=== PATIENT | female | born 1975 | race Caucasian/White ===

== ENCOUNTER 2016-06-23 13:14 | Emergency (ER) | payer SELFPAY ==
[2016-06-23] MEDS ORDERED: ONDANSETRON INJ 4 MG/2 ML VIAL ONE (13:26)
[2016-06-23] MEDS ORDERED: LIDOCAINE VIS-MYLANTA 30 ML UD PO ONE (13:26)
[2016-06-23] MEDS ORDERED: ONDANSETRON INJ 4 MG/2 ML VIAL IV ONE (13:26)
--- NOTE | 2016-06-23 13:57 | RAD ---
EXAM DESCRIPTION: Abdomen Series CLINICAL HISTORY: 41 years Female, chest pain COMPARISON: None. FINDINGS: Two views of the abdomen demonstrate clear lung bases with no evidence of free abdominal air on the upright view. Bowel gas pattern is normal without obstruction or ileus or significant air-fluid levels. No soft tissue masses or unusual calculi are noted. Surgical clips from previous cholecystectomy in the right upper quadrant are noted. IMPRESSION: Normal abdomen two views. Electronically signed by: Jorge Carpenter MD 06/23/2016 1:56 PM CDT
[2016-06-23] MEDS ORDERED: MORPHINE SULFATE INJ 10 MG/ML VIAL IV ONE (15:12)
[2016-06-23] MEDS ORDERED: PROCHLORPERAZINE INJ 10 MG/2 ML VIAL IV ONE (15:12)
--- NOTE | 2016-06-23 15:20 | RAD ---
EXAM DESCRIPTION: Chest,1 View CLINICAL HISTORY: chest pain FINDINGS/ IMPRESSION: Normal cardiomediastinal silhouette. No edema, infiltrates or effusions Electronically signed by: Jorge Pollock MD 06/23/2016 3:20 PM CDT
[2016-06-23] MEDS ORDERED: NITROGLYCERIN 0.4 MG 25 EA TAB SL ONE (16:41)
[2016-06-23] MEDS ORDERED: ASPIRIN TABLET 325 MG TAB PO ONE (16:45)
[2016-06-23] MEDS ORDERED: ALUMINUM & MAGNESIUM HYDROXIDE 30 ML UD PO ONE (17:07)
[2016-06-23] MEDS ORDERED: PROMETHAZINE HCL 25 MG TAB PO ONE (17:27)
[2016-06-23] MEDS ORDERED: KETOROLAC TROMETHAMINE INJ 30 MG/ML VIAL IV ONE (17:31)
[2016-06-23] MEDS ORDERED: HYDROcodone 10MG/APAP 325MG 1 EA TAB PO ONE (17:31)
--- NOTE | 2016-06-23 17:50 | ED.PDOC ---
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 She has thrown up numerous times in that timeframe. She is having substernal chest pain and chest pain moved to the left side of her chest. No palpitations. No radiation to the shoulder or jaw. No diarrhea. No syncope or near syncope. She rates the pain with some associated shortness of breath fairly severely at a 7-8 out of 10. She does have a significant history of fibromyalgia, anxiety and rheumatoid arthritis. Her medications include hydrocodone and Lyrica. She also apparently has a history of recurrent nausea and she takes on average 4-5 Phenergan tablets per week. Source of the nausea isn't certain. She was hospitalized one year ago for intractable nausea and vomiting and had a CT scan and right upper quadrant ultrasound at that time. She has not had any Phenergan or hydrocodone for the last week according to her. She does have something of a history of reflux that to this point remains untreated. She does not appear to have any upper endoscopies in the recent past. Timing/Duration: 1/2 hour Severity: severe Improving Factors: nothing Worsening Factors: movement Associated Symptoms: chest pain, loss of appetite, malaise, nausea/vomiting <Chava Bermeo - Last Filed: 06/23/16 17:46> <Violeta Moreau - Last Filed: 06/23/16 20:21> - General Chief Complaint: GI Problem Stated Complaint: nausea and vomiting with chest pain Time Seen by Provider: 06/23/16 13:14 - History of Present Illness Allergies/Adverse Reactions: Allergies NO KNOWN ALLERGY Allergy (Verified 06/23/16 13:39) Home Medications: Ambulatory Orders ALPRAZolam [Xanax] 0.5 - 1 mg PO Q6HR PRN 05/19/15 Gabapentin 300 mg PO TID 05/19/15 HYDROcodone 10MG/APAP 325MG [[place] 10/325] 1 ea PO Q6H PRN 05/19/15 Promethazine Supp [Phenergan Suppository] 12.5 mg [place] Q6HR PRN #10 sup 06/16/15 Review of Systems - Review of Systems Constitutional: States: malaise EENTM: States: no symptoms reported Respiratory: States: short of breath - with the vomiting and chest pain Cardiology: States: chest pain Gastrointestinal/Abdominal: States: abdominal pain - epigastric, nausea, vomiting Genitourinary: States: no symptoms reported Musculoskeletal: States: no symptoms reported Skin: States: no symptoms reported Neurological: States: anxiety Endocrine: States: no symptoms reported All other Systems: No Change from Baseline <Chava Bermeo - Last Filed: 06/23/16 17:46> Past Medical History (General) - Patient Medical History Hx Seizures: No Hx Stroke: No Hx Dementia: No Hx Asthma: No Hx of COPD: No Hx Cardiac Disorders: No Hx Congestive Heart Failure: No Hx Pacemaker: No Hx Hypertension: No Hx Thyroid Disease: No Hx Diabetes: No Hx Gastroesophageal Reflux: No Hx Renal Disease: No Hx Cancer: No Hx of HIV: No Hx Hepatitis C: No Hx MRSA: No MRSA Source:: Wound Surgical History: appendectomy, cholecystectomy - Vaccination History Hx Tetanus, Diphtheria Vaccination: No Hx Influenza Vaccination: No Hx Pneumococcal Vaccination: No Immunizations Up to Date: No - Social History Hx Tobacco Use: No Hx Chewing Tobacco Use: No Hx Alcohol Use: No Hx Substance Use: No Hx Substance Use Treatment: No Hx Depression: No Feels Threatened In Home Enviroment: No Feels Threatened In a Relationship: No Hx Physical Abuse: No Hx Emotional Abuse: No Hx Suspected Abuse: No - Female History Patient is a Female of Child Bearing Age (10 -59 yrs old): Yes Patient : No <Chava Bermeo - Last Filed: 06/23/16 17:46> Family Medical History - Family History Mother Family History: No Known Living Status: Still Living Hx Family Hypertension: Yes <Chava Bermeo - Last Filed: 06/23/16 17:46> Physical Exam - Physical Exam General Appearance: Alert, Anxious Eye Exam: bilateral normal Ears, Nose, Throat: hearing grossly normal, normal ENT inspection, normal pharynx Neck: non-tender, full range of motion, supple Respiratory: lungs clear, normal breath sounds, no respiratory distress, no accessory muscle use, other - she does have discomfort palpation over her left lateral and anterior thorax. No rashes seen. Cardiovascular/Chest: normal peripheral pulses, regular rate, rhythm, no edema Peripheral Pulses: radial,right: 2+, radial,left: 2+, dorsalis pedis,right: 2+, dorsalis pedis,left: 2+, posterior tibialis,right: 2+, posterior tibialis,left: 2+ Gastrointestinal/Abdominal: non tender - with the exception of some epigastric discomfort, soft Rectal Exam: deferred Back Exam: normal inspection, no CVA tenderness, no vertebral tenderness Extremity: normal range of motion, non-tender, normal inspection, no pedal edema , normal capillary refill Neurologic: manager system II-XII nml as tested, alert, oriented x 3 - anxious Skin Exam: normal color Comments: Vital Signs - 24 hr 06/23/16 06/23/16 06/23/16 13:39 16:56 17:03 Temperature 98 F Pulse Rate [ 60 60 72 Right Radial] Respiratory 22 20 20 Rate Blood Pressure 122/64 114/70 107/69 [Left Arm] O2 Sat by Pulse 99 98 98 Oximetry Laboratory Results - last 24 hr 06/23/16 06/23/16 06/23/16 13:30 13:30 13:30 WBC 8.1 RBC 4.34 Hgb 13.9 Hct 41.3 MCV 95.1 MCH 32.0 H MCHC 33.7 RDW 13.1 Plt Count 273 MPV 7.7 Absolute Neuts (auto) 6.00 Absolute Lymphs (auto) 1.50 Absolute Monos (auto) 0.50 Absolute Eos (auto) 0.00 Absolute Basos (auto) 0.00 Neutrophils % 75.1 Lymphocytes % 18.8 L Monocytes % 5.9 Eosinophils % 0.1 L Basophils % 0.1 PT 11.7 INR 1.040 PTT (SP) 28.6 D-Dimer, Quantitative < 200 Sodium 137 Potassium 3.7 Chloride 104 Carbon Dioxide 25 Anion Gap 11.7 L BUN 11 Creatinine 0.73 BUN/Creatinine Ratio 15.1 Random Glucose 120 H Serum Osmolality 274.4 L Calcium 9.5 Magnesium 2.0 Total Bilirubin 0.5 AST 19 ALT 29 Alkaline Phosphatase 60 Creatine Kinase 46 CK-MB (CK-2) 0.7 CK-MB (CK-2) % Not Reportable Troponin I < 0.02 B-Natriuretic Peptide 14.7 Serum Total Protein 7.7 Albumin 4.4 Globulin 3.3 Albumin/Globulin Ratio 1.3 Amylase 29 Lipase 29 Urine Color Urine Appearance Urine pH Ur Specific [place] Urine Protein Urine Glucose (UA) Urine Ketones Urine Blood Urine Nitrite Urine Bilirubin Urine Urobilinogen Ur Leukocyte Esterase Urine RBC Urine WBC Ur Epithelial Cells Calcium Oxalate Crystal Amorphous Sediment Urine Bacteria Urine HCG, Qual 06/23/16 06/23/16 06/23/16 13:40 13:59 16:45 WBC RBC Hgb Hct MCV MCH MCHC RDW Plt Count MPV Absolute Neuts (auto) Absolute Lymphs (auto) Absolute Monos (auto) Absolute Eos (auto) Absolute Basos (auto) Neutrophils % Lymphocytes % Monocytes % Eosinophils % Basophils % PT INR PTT (SP) D-Dimer, Quantitative Sodium Potassium Chloride Carbon Dioxide Anion Gap BUN Creatinine BUN/Creatinine Ratio Random Glucose Serum Osmolality Calcium Magnesium Total Bilirubin AST ALT Alkaline Phosphatase Creatine Kinase 41 CK-MB (CK-2) 0.8 CK-MB (CK-2) % Not Reportable Troponin I < 0.02 B-Natriuretic Peptide Serum Total Protein Albumin Globulin Albumin/Globulin Ratio Amylase Lipase Urine Color Yellow Urine Appearance Cloudy Urine pH 5.0 Ur Specific [place] >= 1.030 Urine Protein 30 Urine Glucose (UA) Negative Urine Ketones 15 H Urine Blood Large H Urine Nitrite Negative Urine Bilirubin Small H Urine Urobilinogen 0.2 Ur Leukocyte Esterase Negative Urine RBC 10-20 H Urine WBC 0-1 Ur Epithelial Cells 0-1 Calcium Oxalate Crystal 2+ Amorphous Sediment 3+ Urine Bacteria 1+ Urine HCG, Qual Negative the patient is currently on her menstrual period. Chest and abdominal x-rays appear benign. Initial repeat EKG shows normal sinus rhythm in the 60s. No acute ST segment changes concerning for ischemia. Normal QT interval. Normal AK interval. Normal axis. <Chava Bermeo L - Last Filed: 06/23/16 17:46> Progress - Progress Progress: 06/23/16 17:57 the patient is a 41-year-old female presenting with acute onset nausea and vomiting and chest pain. The first 2 sets of cardiac enzymes are negative. She has no history of any cardiac disease. She does however have a significant history of recurrent nausea and vomiting requiring hospitalization on at least 2 occasions. She does have some chest wall discomfort that does reproduce the chest pain well. Symptoms have improved with opiates and anti- emetics. Nitroglycerin did not help. The patient is due for one more set of cardiac enzymes. If the enzymes are negative and the patient's nausea and vomiting can be controlled then she can likely be discharged home attributing the symptoms to gastritis and esophagitis. On those grounds she should see gastroenterology in the near future to set up an endoscopy. Additionally starting a medication such as Pepcid or Zantac for beneficial. She apparently has Phenergan at home. She does have musculoskeletal chest pain that we'll likely give her some discomfort over the next few weeks. She can use her hydrocodone to treat this. The patient will be handed over to Dr. Moreau for completion of the evaluation and further disposition based on those findings and the patient's clinical condition at the time. the patient may have to be admitted if we are likely unable to keep her nausea and vomiting under control as an outpatient. 06/23/16 18:01 <Chava Bermeo L - Last Filed: 06/23/16 17:46> - Results/Orders Results/Orders: Laboratory Tests 06/23/16 06/23/16 06/23/16 13:30 13:30 13:30 WBC 8.1 RBC 4.34 Hgb 13.9 Hct 41.3 MCV 95.1 MCH 32.0 H MCHC 33.7 RDW 13.1 Plt Count 273 MPV 7.7 Absolute Neuts (auto) 6.00 Absolute Lymphs (auto) 1.50 Absolute Monos (auto) 0.50 Absolute Eos (auto) 0.00 Absolute Basos (auto) 0.00 Neutrophils % 75.1 Lymphocytes % 18.8 L Monocytes % 5.9 Eosinophils % 0.1 L Basophils % 0.1 PT 11.7 INR 1.040 PTT (SP) 28.6 D-Dimer, Quantitative < 200 Sodium 137 Potassium 3.7 Chloride 104 Carbon Dioxide 25 Anion Gap 11.7 L BUN 11 Creatinine 0.73 BUN/Creatinine Ratio 15.1 Random Glucose 120 H Serum Osmolality 274.4 L Calcium 9.5 Magnesium 2.0 Total Bilirubin 0.5 AST 19 ALT 29 Alkaline Phosphatase 60 Creatine Kinase 46 CK-MB (CK-2) 0.7 CK-MB (CK-2) % Not Reportable Troponin I < 0.02 B-Natriuretic Peptide 14.7 Serum Total Protein 7.7 Albumin 4.4 Globulin 3.3 Albumin/Globulin Ratio 1.3 Amylase 29 Lipase 29 Urine Color Urine Appearance Urine pH Ur Specific [place] Urine Protein Urine Glucose (UA) Urine Ketones Urine Blood Urine Nitrite Urine Bilirubin Urine Urobilinogen Ur Leukocyte Esterase Urine RBC Urine WBC Ur Epithelial Cells Calcium Oxalate Crystal Amorphous Sediment Urine Bacteria Urine HCG, Qual 06/23/16 06/23/16 06/23/16 13:40 13:59 16:45 WBC RBC Hgb Hct MCV MCH MCHC RDW Plt Count MPV Absolute Neuts (auto) Absolute Lymphs (auto) Absolute Monos (auto) Absolute Eos (auto) Absolute Basos (auto) Neutrophils % Lymphocytes % Monocytes % Eosinophils % Basophils % PT INR PTT (SP) D-Dimer, Quantitative Sodium Potassium Chloride Carbon Dioxide Anion Gap BUN Creatinine BUN/Creatinine Ratio Random Glucose Serum Osmolality Calcium Magnesium Total Bilirubin AST ALT Alkaline Phosphatase Creatine Kinase 41 CK-MB (CK-2) 0.8 CK-MB (CK-2) % Not Reportable Troponin I < 0.02 B-Natriuretic Peptide Serum Total Protein Albumin Globulin Albumin/Globulin Ratio Amylase Lipase Urine Color Yellow Urine Appearance Cloudy Urine pH 5.0 Ur Specific [place] >= 1.030 Urine Protein 30 Urine Glucose (UA) Negative Urine Ketones 15 H Urine Blood Large H Urine Nitrite Negative Urine Bilirubin Small H Urine Urobilinogen 0.2 Ur Leukocyte Esterase Negative Urine RBC 10-20 H Urine WBC 0-1 Ur Epithelial Cells 0-1 Calcium Oxalate Crystal 2+ Amorphous Sediment 3+ Urine Bacteria 1+ Urine HCG, Qual Negative 06/23/16 19:45 WBC RBC Hgb Hct MCV MCH MCHC RDW Plt Count MPV Absolute Neuts (auto) Absolute Lymphs (auto) Absolute Monos (auto) Absolute Eos (auto) Absolute Basos (auto) Neutrophils % Lymphocytes % Monocytes % Eosinophils % Basophils % PT INR PTT (SP) D-Dimer, Quantitative Sodium Potassium Chloride Carbon Dioxide Anion Gap BUN Creatinine BUN/Creatinine Ratio Random Glucose Serum Osmolality Calcium Magnesium Total Bilirubin AST ALT Alkaline Phosphatase Creatine Kinase 43 CK-MB (CK-2) 0.7 CK-MB (CK-2) % Not Reportable Troponin I < 0.02 B-Natriuretic Peptide Serum Total Protein Albumin Globulin Albumin/Globulin Ratio Amylase Lipase Urine Color Urine Appearance Urine pH Ur Specific [place] Urine Protein Urine Glucose (UA) Urine Ketones Urine Blood Urine Nitrite Urine Bilirubin Urine Urobilinogen Ur Leukocyte Esterase Urine RBC Urine WBC Ur Epithelial Cells Calcium Oxalate Crystal Amorphous Sediment Urine Bacteria Urine HCG, Qual <Violeta Moreau - Last Filed: 06/23/16 20:21> Departure <Chava Bermeo - Last Filed: 06/23/16 17:46> - Departure Time of Disposition: 20:20 Diet: resume usual diet Activity: increase activity as tolerated <Violeta Moreau - Last Filed: 06/23/16 20:21> - Departure Clinical Impression: Nausea & vomiting Qualifiers: Vomiting type: bilious vomiting Qualified Code(s): R11.14 - Bilious vomiting Disposition: Discharge to Home or Self Care Condition: Good Departure Forms: ED Discharge - Pt. Copy, Patient Portal Self Enrollment Instructions: DI for Vomiting -- Adult Referrals: ERIN WHITE [Primary Care Provider] - 1-2 Weeks Home Medications: Ambulatory Orders ALPRAZolam [Xanax] 0.5 - 1 mg PO Q6HR PRN 05/19/15 Gabapentin 300 mg PO TID 05/19/15 HYDROcodone 10MG/APAP 325MG [[place] 10/325] 1 ea PO Q6H PRN 05/19/15 Promethazine Supp [Phenergan Suppository] 12.5 mg [place] Q6HR PRN #10 sup 06/16/15
[2016-06-23 20:14] VITALS: O2SAT 95
[2016-06-23 20:15] VITALS: TEMP 100
[2016-06-23 20:30] VITALS: BP 109/76
== END 2016-06-23 20:29 | disposition home or self-care (01) ==
LOC: ER 13:14
DX: R11.14 Bilious vomiting (principal); Z79.899 Other long term (current) drug therapy
CPT/HCPCS: 36415; 71010; 74020; 80053; 81001; 81025; 82150; 82550; 82553; 83690; 83735; 83880; 84484; 85025; 85379; 85610; 85730; 93005; J0780; J1885; J2270; J2405; Q0169

== ENCOUNTER 2016-07-01 09:11 | Observation (INO) | payer SELFPAY ==
[2016-07-01] MEDS ORDERED: KETOROLAC TROMETHAMINE INJ 30 MG/ML VIAL IV ONE (09:38)
[2016-07-01] MEDS ORDERED: ONDANSETRON INJ 4 MG/2 ML VIAL IV ONE (09:38)
[2016-07-01] MEDS ORDERED: SODIUM CHLORIDE 0.9% (FLUSH) 10 ML SYG IV PRN ×2 (09:38→15:54)
--- NOTE | 2016-07-01 09:54 | ED.PDOC ---
History of Present Illness - General Chief Complaint: GI Problem Stated Complaint: Nausea, vomiting, loose stools Time Seen by Provider: 07/01/16 09:38 Information Source: patient - History of Present Illness Initial Comments: PT REPORTS 2 WEEK HISTORY OF NAUSEA, VOMITING, AND LOOSE STOOLS. PT REPORTS INTERMITTENT GENERALIZED ABDOMINAL PAIN. OLD RECORDS REVIEWED REVEALING THAT PT WAS SEEN IN THE ED 1 WEEK AGO FOR SIMILAR COMPLAINT. Abdominal Pain Onset Location: generalized abdomen Quality: moderate, cramping Timing/Duration: constant Improving Factors: nothing Worsening Factors: nothing Review of Systems - Review of Systems Constitutional: Denies: chills, fever EENTM: Denies: ear pain, throat pain Respiratory: Denies: cough, short of breath Cardiology: Denies: chest pain, palpitations Gastrointestinal/Abdominal: States: see HPI, abdominal pain, diarrhea, nausea, vomiting Genitourinary: Denies: dysuria, frequency Musculoskeletal: Denies: joint pain, muscle pain Skin: Denies: change in color, lesions Neurological: Denies: numbness, paresthesia Endocrine: Denies: increased thirst, increased urine Hematologic/Lymphatic: States: no symptoms reported. Denies: anemia, blood clots Past Medical History (General) - Patient Medical History Hx Seizures: No Hx Stroke: No Hx Dementia: No Hx Asthma: No Hx of COPD: No Hx Cardiac Disorders: No Hx Congestive Heart Failure: No Hx Pacemaker: No Hx Hypertension: No Hx Thyroid Disease: No Hx Diabetes: No Hx Gastroesophageal Reflux: No Hx Renal Disease: No Hx Cancer: No Hx of HIV: No Hx Hepatitis C: No Hx MRSA: No MRSA Source:: Wound Surgical History: cholecystectomy, tonsillectomy - Vaccination History Hx Tetanus, Diphtheria Vaccination: No Hx Influenza Vaccination: No Hx Pneumococcal Vaccination: No - Social History Hx Tobacco Use: No Hx Chewing Tobacco Use: No Hx Alcohol Use: No Hx Substance Use: No Hx Substance Use Treatment: No Hx Depression: No Hx Physical Abuse: No Hx Emotional Abuse: No Hx Suspected Abuse: No - Female History Patient is a Female of Child Bearing Age (10 -59 yrs old): Yes Patient : No Family Medical History - Family History Mother Family History: No Known Living Status: Still Living Hx Family Hypertension: Yes Physical Exam - Physical Exam General Appearance: Ill Appearing, Other - APPEARS UNCOMFORTABLE Eyes, Ears, Nose, Throat Exam: normal ENT inspection Neck: non-tender, normal inspection Respiratory: lungs clear, normal breath sounds, no respiratory distress Cardiovascular/Chest: regular rate, rhythm, no murmur Gastrointestinal/Abdominal: soft, tenderness - GENERALIZED Back Exam: normal inspection, no CVA tenderness Extremity: normal range of motion, normal inspection Neurologic: no motor/sensory deficits, alert, oriented x 3, depressed affect Skin Exam: normal color, warm/dry Progress - Progress Progress: 07/01/16 11:00 ON REASSESSMENT AFTER TORADOL AND ZOFRAN AND NORMAL SALINE PATIENT ONLY REPORTS MINIMAL IMPROVEMENT IN SYMPTOMS PATIENT CONTINUES TO COMPLAIN OF DIZZINESS AND NAUSEA. PATIENT DOES REPORT COMPLETE RESOLUTION OF ABDOMINAL PAIN. LAB FINDINGS DISCUSSED WITH PATIENT. PATIENT AGREES TO BE ADMITTED TO THE HOSPITAL FOR ADDITIONAL IV FLUIDS AND IV POTASSIUM REPLACEMENT AND REPEAT BLOOD WORK. - Results/Orders Results/Orders: 07/01/16 09:38 Sodium Chloride 0.9% (Flush) [Saline Flush Syringe] 10 ml IV PRN PRN Sodium Chloride 0.9% 1000ML [Ns 1000 ml] 1,000 ml IVS .QD 07/01/16 09:39 IV Care:Saline Lock per Protoc QSHIFT URINALYSIS Stat Laboratory Results - last 24 hr 07/01/16 07/01/16 07/01/16 09:59 09:59 09:59 WBC 9.6 RBC 5.05 Hgb 15.9 Hct 47.3 H MCV 93.5 MCH 31.4 H MCHC 33.5 RDW 12.3 Plt Count 267 MPV 8.6 Absolute Neuts (auto) 7.10 H Absolute Lymphs (auto) 1.50 Absolute Monos (auto) 0.90 H Absolute Eos (auto) 0.00 Absolute Basos (auto) 0.00 Neutrophils % 73.7 Lymphocytes % 16.1 L Monocytes % 9.5 H Eosinophils % 0.5 L Basophils % 0.2 Sodium 131 L Potassium 2.5 L Chloride 90 L Carbon Dioxide 30 Anion Gap 13.5 BUN 11 Creatinine 0.65 BUN/Creatinine Ratio 16.9 Random Glucose 138 H Serum Osmolality 264.3 L Calcium 9.4 Total Bilirubin 0.8 Direct Bilirubin 0.2 Indirect Bilirubin 0.6 AST 20 ALT 22 Alkaline Phosphatase 65 Serum Total Protein 7.5 Albumin 4.1 Lipase 26 Serum HCG, Qual Negative Departure - Departure Clinical Impression: Hyponatremia, Hypokalemia, Hypochloremia, Gastroenteritis, Failure of outpatient treatment Time of Disposition: :28 Disposition: Admit Patient Condition: Fair Departure Forms: ED Discharge - Pt. Copy, Patient Portal Self Enrollment Referrals: ERIN WHITE [Primary Care Provider] - 1-2 Weeks Home Medications: Ambulatory Orders ALPRAZolam [Xanax] 0.5 - 1 mg PO Q6HR PRN 05/19/15 Gabapentin 300 mg PO TID 05/19/15 HYDROcodone 10MG/APAP 325MG [[place] 10/325] 1 ea PO Q6H PRN 05/19/15 Promethazine Supp [Phenergan Suppository] 12.5 mg [place] Q6HR PRN #10 sup 06/16/15 Decision To Admit - Decistion To Admit Decision to Admit Reason: Admit from ER Decision to Admit Date: 07/01/16 Decision to Admit Time: 11:28 - CASE DISCUSSED WITH DR. SINGH
[2016-07-01] MEDS: SODIUM CHLORIDE 0.9% 1000ML 1,000 ML IVS PRN (09:59)
[2016-07-01] MEDS ORDERED: KCL 40MEQ/NS 1,000 ML IVS PRN (11:31)
[2016-07-01] MEDS ORDERED: KCL 20 MEQ/NS 1,000 ML IVS ONE (11:47)
[2016-07-01] MEDS ORDERED: POTASSIUM CHLORIDE 20mEq 10ML VIAL ONE (11:55)
--- NOTE | 2016-07-01 12:11 | HP ---
HISTORY OF PRESENT ILLNESS: This 41-year-old, white female is admitted from the Emergency Room because of protracted nausea and vomiting with diarrhea. Symptoms have been getting worse for the last 2 weeks and are associated with abdominal pain, primarily in the epigastric region. She has been in the Emergency Room twice during this time. She is dizzy when she stands up. She has been receiving some IVs today in the Emergency Room and feels a little better after fluid, but is still quite dehydrated. She has some right upper quadrant discomfort with radiation to the epigastrium. She has yellowish stools with her prime complaint being vomiting. She had her gallbladder removed about a year ago by Dr. Rios and has done fairly well until now. She had a GI cocktail about a week before and it seemed to help some of the discomfort. 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 This is a concern to her and, in fact, while talking about it, she began to cry because of the significance of the concern on her part. In the Emergency Room, she was found to have a low sodium and a low potassium with potassium 2.5. She had failed outpatient therapy and was very dehydrated requiring additional fluid supplementation. History of fibromyalgia and anxiety which will also be required to be addressed. The patient is placed in the hospital for fluid and for hydration and potassium supplementation. PAST MEDICAL HISTORY: 1. Fibromyalgia. 2. Migraine history. 3. Rheumatoid arthritis. PAST SURGICAL HISTORY: 1. Gallbladder removal last year. 2. Appendectomy. 3. Tonsillectomy. 4. Bilateral tubal ligation in the past. CURRENT MEDICATIONS: Please refer to nursing notes. ALLERGIES: NONE KNOWN. FAMILY HISTORY: Positive for hypertension, diabetes mellitus. 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 REVIEW OF SYSTEMS: GENERAL: No significant weight change. No fever or chills recently. HEENT: Unremarkable. LUNGS: Some mild coughing present. No hemoptysis. CARDIOVASCULAR: No palpitations or chest pains. GASTROINTESTINAL: Decreased appetite and trouble with protracted nausea and vomiting with loose stools. No specific blood in her stools noted grossly. GENITOURINARY: No dysuria. EXTREMITIES: Generally within normal limits. NEUROLOGIC: She has had decreased sleepiness and very tired. Headaches in the past. PHYSICAL EXAMINATION: VITAL SIGNS: Afebrile. Pulse 68. Blood pressure 101/67. Pulse oximetry 97% on room air. Weight 80.6 kg. GENERAL: The patient is awake and alert, but has spells where she will cry when discussed regarding the situation in her home. She has been unable to work recently because of the protracted nausea. The mother states that she has had significant upset and easy vomiting since she was a child in early school years and apparently it is recurring. NECK: Supple. LUNGS: Clear. CARDIOVASCULAR: Heart tones are regular. ABDOMEN: Diminished bowel tones. Somewhat tender especially in the epigastrium and the right upper quadrant to palpation. No organomegaly evident. Frequent episodes of emesis into the vomiting container noted during the exam. No rebound tenderness. EXTREMITIES: Within normal limits. NEUROLOGIC: No focal neurological deficits are noted. The patient does appear to be somewhat depressed at this time. LABORATORY: White count 9,600, hemoglobin 15.9. Chemistries show sodium low at 131, potassium very low at 2.5. Kidney functions normal. Glucose 138. Liver enzymes normal. Lipase normal. test negative. Urinalysis showed some ketonuria, bilirubinuria, hematuria, 1+ bacteruria. Urine culture is pending. No x-rays at this time pending. ASSESSMENT: 1. Protracted nausea and vomiting with associated diarrhea, having failed outpatient therapy and worsening. 2. Significant hypokalemia secondary to the protracted emesis with potassium 2.5 and symptomatic. 3. Dehydration, requiring IV hydration supplementation. 4. Chronic anxiety disorder contributing to the nausea. 5. Mild hyponatremia. 6. History of fibromyalgia. PLAN: The patient is admitted to the hospital for stabilization. She will be given Carafate as well as Prilosec, IV fluids, potassium supplementation. We will have H. pylori evaluated. Check stools for occult blood, Clostridium difficile as well as stool culture. Continue with anti-anxiety medications as possible and antiemesis and observe closely. May eventually require continued outpatient management with Dr. Domínguez. Reevaluate in the morning. #[id number] [facility]
[2016-07-01] MEDS ORDERED: SODIUM CHLORIDE 0.9% 50ML 50 ML ONE (14:14)
[2016-07-01] MEDS ORDERED: PROMETHAZINE HCL INJ 25 MG/ML VIAL ONE (14:14)
[2016-07-01] MEDS: PROMETHAZINE HCL INJ 12.5 MG in SODIUM CHLORIDE 0.9% 50ML 50 ML IVPB PRN (14:17)
[2016-07-01] MEDS ORDERED: MAGNESIUM HYDROXIDE 30 ML UD PO PRN (15:54)
[2016-07-01] MEDS ORDERED: HYDROcodone 5MG/APAP 325MG 1 EA TAB PO PRN (15:54)
[2016-07-01] MEDS ORDERED: IV SET AND CAP CHANGE INJ INJ SCH (16:00)
[2016-07-01] MEDS ORDERED: KCL 20MEQ/WATER FOR INJ 100ML 20 MEQ in PREMIX BAG 1 BAG IVPB ONE ×2 (16:03→16:32)
[2016-07-01] MEDS ORDERED: KCL 20MEQ/WATER FOR INJ 100ML 100 ML IVPB ONE (16:08)
[2016-07-01] MEDS ORDERED: KCL 40 MEQ/WATER FOR INJECTION 40 MEQ in PREMIX BAG 1 BAG IVPB ONE (16:10)
[2016-07-01] MEDS: PANTOPRAZOLE SODIUM IV 40 MG VIAL IV SCH (16:15)
[2016-07-01] MEDS: PROCHLORPERAZINE INJ 10 MG/2 ML VIAL IV PRN (16:19)
[2016-07-01] MEDS ORDERED: SODIUM CHLORIDE 0.9% 1000ML 1,000 ML ONE (19:02)
[2016-07-01] MEDS ORDERED: POTASSIUM CHLORIDE 40mEq 20ML VIAL ONE (19:02)
[2016-07-01] MEDS: POTASSIUM CHLORIDE INJ 40 MEQ 40 MEQ in SODIUM CHLORIDE 0.9% 1000ML 1,000 ML IV PRN (19:05)
[2016-07-01] MEDS ORDERED: diphenhydrAMINE HCL 50 MG/ML VIAL IV ONE (19:30)
[2016-07-01] MEDS: SUCRALFATE 1 GM/10 ML 1 GM UD PO SCH (21:18)
[2016-07-01] MEDS: ONDANSETRON INJ 4 MG/2 ML VIAL IV PRN (21:18)
[2016-07-01] MEDS: TEMAZEPAM 15 MG CAP PO PRN (22:10)
[2016-07-02] MEDS ORDERED: POTASSIUM CHLORIDE 40mEq 20ML VIAL ONE ×2 (03:31→18:54)
[2016-07-02] MEDS: ONDANSETRON INJ 4 MG/2 ML VIAL IV PRN (03:39)
[2016-07-02] MEDS: PROCHLORPERAZINE INJ 10 MG/2 ML VIAL IV PRN ×2 (05:00→13:48)
[2016-07-02] MEDS: POTASSIUM CHLORIDE INJ 40 MEQ 40 MEQ in SODIUM CHLORIDE 0.9% 1000ML 1,000 ML IV PRN ×2 (05:01→19:02)
[2016-07-02] MEDS: SUCRALFATE 1 GM/10 ML 1 GM UD PO SCH ×4 (06:11→20:40)
[2016-07-02] MEDS ORDERED: PROMETHAZINE HCL INJ 25 MG/ML VIAL ONE ×4 (10:01→18:53)
[2016-07-02] MEDS ORDERED: SODIUM CHLORIDE 0.9% 50ML 50 ML ONE ×3 (10:01→18:54)
[2016-07-02] MEDS: PROMETHAZINE HCL INJ 12.5 MG in SODIUM CHLORIDE 0.9% 50ML 50 ML IVPB PRN ×2 (10:13→18:59)
[2016-07-02] MEDS: CITALOPRAM HBR 20 MG TAB PO SCH (13:14)
[2016-07-02] MEDS: GABAPENTIN 300 MG CAP PO SCH ×2 (15:13→20:40)
[2016-07-02] MEDS: ALPRAZolam 0.5 MG TAB PO PRN ×2 (15:13→23:00)
[2016-07-02] MEDS: PANTOPRAZOLE SODIUM IV 40 MG VIAL IV SCH (17:06)
--- NOTE | 2016-07-02 17:16 | PN ---
DATE: 07/02/16 SUPERVISING PHYSICIAN: Sundeep Mayorga M.D. SUBJECTIVE: The patient is lying in bed asleep. She awakens easily. Has no complaints of shortness of breath, chest pain or abdominal pain, although she does still say her abdomen is still somewhat queasy. She has had no bouts of diarrhea since during the night. So far she is tolerating her full liquid diet without any problems, but she says she is quite anxious and she feels like her fibromyalgia is "acting up." OBJECTIVE: VITAL SIGNS: She is afebrile, heart rate 70, blood pressure is 94/51 , respiratory rate 18, O2 sat is 96%. RESPIRATORY: Clear to auscultation bilaterally. CARDIAC: Regular rate and rhythm. ABDOMEN: Soft, nondistended, nontender. Bowel sounds are positive. EXTREMITIES: No cyanosis, clubbing or edema. NEUROLOGIC: She is awake, alert and oriented times three. PSYCHIATRIC: She is somewhat anxious and tearful. LABORATORY: CBC is basically within normal limits. Sodium 137, potassium 3.6, chloride 106, carbon dioxide 25, BUN 8, creatinine 0.59, serum osmolality 272.4. H. pylori is negative. Urine culture shows no growth. All other labs and films have been reviewed via the EMR. ASSESSMENT: 1. Protracted nausea and vomiting with associated diarrhea having failed outpatient therapy and slowly improving. 2. Significant hypokalemia secondary to the protracted emesis. Her potassium has now corrected to 3.6. 3. Dehydration requiring IV hydration supplementation. 4. Chronic anxiety disorder. 5. Mild hyponatremia that is now resolved. 6. History of fibromyalgia. PLAN: We will continue present supportive care. She has tolerated her full liquid diet well this morning, so I have advanced her to a bland diet. I have discontinued her IV pain medications and started her on her home medications. I believe some of her issues may be due to her not getting her Neurontin, so I have restarted that. I have also started her on Celexa 20 mg daily as well as continued her Xanax and I will discontinue her IV Ativan. I will repeat some labs in the morning and hopefully she can be discharged and followed up with Dr. Domínguez. Dr. Mayorga is the collaborating physician and available for consultation. #[id number] and [id number] [facility]
[2016-07-02] MEDS ORDERED: SODIUM CHLORIDE 0.9% 1000ML 1,000 ML ONE (18:53)
[2016-07-02] MEDS: HYDROcodone 10MG/APAP 325MG 1 EA TAB PO PRN (19:01)
[2016-07-02] MEDS: TEMAZEPAM 15 MG CAP PO PRN (20:40)
[2016-07-03] MEDS ORDERED: SODIUM CHLORIDE 0.9% 1000ML 1,000 ML ONE (04:21)
[2016-07-03] MEDS ORDERED: POTASSIUM CHLORIDE 40mEq 20ML VIAL ONE (04:22)
[2016-07-03] MEDS: POTASSIUM CHLORIDE INJ 40 MEQ 40 MEQ in SODIUM CHLORIDE 0.9% 1000ML 1,000 ML IV PRN (04:25)
[2016-07-03] MEDS: SODIUM CHLORIDE 0.9% 1000ML 1,000 ML IVS PRN (04:25)
[2016-07-03 04:30] VITALS: TEMP 98.1
[2016-07-03] MEDS: HYDROcodone 10MG/APAP 325MG 1 EA TAB PO PRN ×2 (04:45→09:17)
[2016-07-03] MEDS: SUCRALFATE 1 GM/10 ML 1 GM UD PO SCH ×3 (06:10→15:28)
[2016-07-03] MEDS: ALPRAZolam 0.5 MG TAB PO PRN ×2 (08:15→14:18)
[2016-07-03] MEDS ORDERED: SODIUM CHLORIDE 0.9% (FLUSH) 10 ML SYG IV SCH (09:00)
[2016-07-03] MEDS: GABAPENTIN 300 MG CAP PO SCH ×2 (09:16→15:27)
[2016-07-03] MEDS: CITALOPRAM HBR 20 MG TAB PO SCH (09:17)
[2016-07-03 09:42] VITALS: O2SAT 97
[2016-07-03] MEDS: PROCHLORPERAZINE INJ 10 MG/2 ML VIAL IV PRN (10:59)
[2016-07-03 13:06] VITALS: BP 118/76
[2016-07-03] MEDS: PANTOPRAZOLE SODIUM IV 40 MG VIAL IV SCH (15:50)
--- NOTE | 2016-07-03 18:02 | DS ---
SUPERVISING PHYSICIAN: Sundeep Mayorga M.D. DISCHARGE DIAGNOSIS: 1. Protracted nausea and vomiting with associated diarrhea having failed outpatient therapy and has improved. 2. Significant hypokalemia secondary to the protracted emesis. Her last potassium was 4.1. 3. Dehydration. 4. Chronic anxiety disorder. 5. Mild hyponatremia that has resolved with her last sodium being 139. 6. History of fibromyalgia. HISTORY OF PRESENT ILLNESS: This is a 41 year-old female patient who was admitted to the Emergency Room due to protracted nausea and vomiting with diarrhea. Her symptoms had worsened over the 2 weeks prior to her admission and she had associated abdominal pain, primarily in the epigastric region. She has been to the Emergency Room 2 times over the prior 2 weeks before admission. She also complained of dizziness. She received IV fluids in the Emergency Room but was still quite dehydrated. She had some right upper quadrant discomfort with radiation to the epigastrium. Her main complaint was yellowish type stools. Dr. Rios removed her gallbladder about a year ago. She has had no problem since surgery. She had a GI cocktail about a week ago and it seemed to help some of her discomfort. 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 She is very anxious and she does worry about her present living situation. She also has a history of fibromyalgia and anxiety. She sees Dr. Domínguez in [place]. HOSPITAL COURSE: During her hospital stay, she received IV fluids as well as Carafate and Prilosec. Her C-Diff was negative. H. pylori was negative. Urine culture was negative. Her initial sodium was 131 and it has improved to 139. Her initial potassium was 2.5 and after supplementation improved to 4.1. She has had no further complaints of abdominal pain, diarrhea or nausea in the last 24 hours. Her vital signs have been stable. We discussed her anxiety at length and she does take quite a bit of Xanax. I have started her on some Celexa. She will be discharged today. DISCHARGE PLAN: The patient will be discharged home in stable condition. She is to followup with Dr. Domínguez in the next 1 to 2 weeks. I have discharged her on Carafate and she would probably benefit from an upper and lower GI scope. I have also given her a prescription for 5 additional days of Celexa at 20 mg and she can increase it to 40 mg after she completes the [address] Domínguez can fill her Celexa at that time. Otherwise she can return to the hospital or followup with Dr. Domínguez for any further complications. DISCHARGE MEDICATIONS: 1. Gabapentin. 2. Hydrocodone. 3. Alprazolam. 4. Phenergan suppository. 5. Citalopram. 6. Carafate. Dr. Mayorga is the collaborating physician and available for consultation. #[id number] [facility]
== END 2016-07-03 16:09 | disposition home or self-care (01) ==
LOC: ER 09:11 → MS 12:10
PROVIDERS: ADMIT Emergency Medicine; ATTEND Nurse Practitioner Acute Care
DX: E87.6 Hypokalemia (principal); E86.0 Dehydration; E87.1 Hypo-osmolality and hyponatremia; R11.2 Nausea with vomiting, unspecified; R19.7 Diarrhea, unspecified; F41.8 Other specified anxiety disorders; M79.7 Fibromyalgia; R42 Dizziness and giddiness; R10.11 Right upper quadrant pain; M06.9 Rheumatoid arthritis, unspecified; Z79.899 Other long term (current) drug therapy; Z90.49 Acquired absence of other specified parts of digestive tract; Z98.51 Tubal ligation status; Z82.49 Family history of ischemic heart disease and other diseases of the circulatory system; Z83.3 Family history of diabetes mellitus
CPT/HCPCS: 36415 ×4; 80048 ×2; 80053; 80076; 81001; 83690; 84703; 85025 ×3; 86317; 87086; 94760 ×5; 96361; 96365; 96366 ×2; 96367; 96375 ×2; 96376 ×3; 99284; A4216 ×4; G0378; J0780 ×4; J1200; J1885; J2060 ×4; J2405 ×3; J2550 ×3; J3480 ×7; J7030 ×5

== ENCOUNTER 2016-12-09 18:29 | Emergency (ER) | payer SELFPAY ==
[2016-12-09 18:55] VITALS: TEMP 99.1
--- NOTE | 2016-12-09 19:02 | ED.PDOC ---
History of Present Illness - General Chief Complaint: Behavioral / Psych Stated Complaint: suicidal ideations Time Seen by Provider: 12/09/16 18:39 Source: patient, RN notes reviewed, Vital Signs reviewed Exam Limitations: no limitations - History of Present Illness Initial Comments: Patient comes in with c/o of suicidal ideation. Family called Jamshid Buenrostro who recommended she come here for medical clearance due to taking Xanax last night. Reports she took 6 of her 1mg tablets last night. Denies any physical injury. She is interested in inpatient treatment. Timing/Duration: yesterday Severity: severe Associated Symptoms: suicidal ideation Allergies/Adverse Reactions: Allergies NO KNOWN ALLERGY Allergy (Verified 12/09/16 18:55) Home Medications: Ambulatory Orders ALPRAZolam [Xanax] 0.5 - 1 mg PO Q6HR PRN 05/19/15 Gabapentin 300 mg PO TID 05/19/15 HYDROcodone 10MG/APAP 325MG [Rugby 10/325] 1 ea PO Q6H PRN 05/19/15 Promethazine Supp [Phenergan Suppository] 12.5 mg ME Q6HR PRN #10 sup 06/16/15 Citalopram Hydrobromide [Celexa] 20 mg PO DAILY #5 07/03/16 Citalopram Hydrobromide [Celexa] 40 mg PO DAILY #30 tab 07/03/16 Sucralfate Suspension [Carafate Suspension] 1 gm PO 0700,1000,1500,2100 #120 Review of Systems - Review of Systems Constitutional: States: no symptoms reported Respiratory: States: no symptoms reported Cardiology: States: no symptoms reported Gastrointestinal/Abdominal: States: no symptoms reported Musculoskeletal: States: no symptoms reported Skin: States: no symptoms reported Neurological: States: see HPI All other Systems: No Change from Baseline Past Medical History (General) - Patient Medical History Hx Seizures: No Hx Stroke: No Hx Dementia: No Hx Asthma: No Hx of COPD: No Hx Cardiac Disorders: No Hx Congestive Heart Failure: No Hx Pacemaker: No Hx Hypertension: No Hx Thyroid Disease: No Hx Diabetes: No Hx Gastroesophageal Reflux: No Hx Renal Disease: No Hx Cancer: No Hx of HIV: No Hx Hepatitis C: No Hx MRSA: No MRSA Source:: Wound Surgical History: appendectomy, cholecystectomy, other - Vaccination History Hx Tetanus, Diphtheria Vaccination: No Hx Influenza Vaccination: No Hx Pneumococcal Vaccination: No - Social History Hx Tobacco Use: Yes Hx Chewing Tobacco Use: No Hx Alcohol Use: No Hx Substance Use: No Hx Substance Use Treatment: No Hx Depression: Yes Hx Physical Abuse: No Hx Emotional Abuse: No Hx Suspected Abuse: No - Female History Patient is a Female of Child Bearing Age (10 -59 yrs old): Yes Patient : No Family Medical History - Family History Mother Family History: No Known Living Status: Still Living Hx Family Hypertension: Yes Physical Exam - Physical Exam General Appearance: Alert, Comfortable, No apparent distress, Well Developed, Well Groomed, Well Hydrated, Well Nourished Neck: supple, normal inspection Respiratory: lungs clear, normal breath sounds, no respiratory distress, no accessory muscle use Cardiovascular/Chest: regular rate, rhythm, no gallop, no JVD, no murmur Gastrointestinal/Abdominal: normal bowel sounds, non tender, soft, no organomegaly Neurological: alert, calm, oriented x 3, depressed affect Appearance: appropriate appearance, appropriate insight Behavior/Eye Contact/Speech: cooperative, avoids eye contact Thoughts/Hallucinations: normal thought pattern, no apparent hallucination Skin Exam: normal color, warm/dry Comments: Vital Signs 12/09/16 18:38 Temperature 99.1 F Pulse Rate [ 101 H pulse ox] Respiratory 20 Rate Blood Pressure 125/73 [Left Arm] O2 Sat by Pulse 96 Oximetry Progress - Progress Progress: 12/09/16 20:10 Awaiting materials handling coordinator from [facility] 12/09/16 20:59 Evaluation done by [facility] instruments sales representative. Patient is going to go check in at the crisis center. - Results/Orders Results/Orders: Laboratory Tests 12/09/16 12/09/16 12/09/16 19:00 19:00 19:00 WBC RBC Hgb Hct MCV MCH MCHC RDW Plt Count MPV Absolute Neuts (auto) Absolute Lymphs (auto) Absolute Monos (auto) Absolute Eos (auto) Absolute Basos (auto) Neutrophils % Lymphocytes % Monocytes % Eosinophils % Basophils % Sodium Potassium Chloride Carbon Dioxide Anion Gap BUN Creatinine BUN/Creatinine Ratio Random Glucose Serum Osmolality Calcium Total Bilirubin AST ALT Alkaline Phosphatase Serum Total Protein Albumin Globulin Albumin/Globulin Ratio Urine Color Urine Appearance Urine pH Ur Specific [place] Urine Protein Urine Glucose (UA) Urine Ketones Urine Blood Urine Nitrite Urine Bilirubin Urine Urobilinogen Ur Leukocyte Esterase Urine RBC Urine WBC Ur Epithelial Cells Urine Bacteria Urine Opiates Screen Negative Acetaminophen 11.4 Urine Barbiturates Negative Ur Phencyclidine Scrn Negative U Amphetamin/Meth Scrn Negative U Benzodiazepines Scrn Positive H U Cocaine Metab Screen Negative U Cannabinoids Screen Negative Ethyl Alcohol < 5.40 12/09/16 12/09/16 12/09/16 19:00 19:00 19:06 WBC 8.7 RBC 4.48 Hgb 13.9 Hct 41.3 MCV 92.2 MCH 30.9 MCHC 33.6 RDW 14.8 H Plt Count 352 MPV 7.6 Absolute Neuts (auto) 5.40 Absolute Lymphs (auto) 2.50 Absolute Monos (auto) 0.70 Absolute Eos (auto) 0.10 Absolute Basos (auto) 0.00 Neutrophils % 61.6 Lymphocytes % 29.1 Monocytes % 7.6 Eosinophils % 1.3 Basophils % 0.4 Sodium 138 Potassium 3.6 Chloride 108 Carbon Dioxide 24 Anion Gap 9.6 L BUN 15 Creatinine 0.74 BUN/Creatinine Ratio 20.3 H Random Glucose 113 H Serum Osmolality 277.3 Calcium 9.4 Total Bilirubin 0.4 AST 18 ALT 25 Alkaline Phosphatase 66 Serum Total Protein 7.0 Albumin 3.9 Globulin 3.1 Albumin/Globulin Ratio 1.3 Urine Color Yellow Urine Appearance Sl cloudy Urine pH 5.5 Ur Specific [place] >= 1.030 Urine Protein Trace Urine Glucose (UA) Negative Urine Ketones Trace Urine Blood Negative Urine Nitrite Negative Urine Bilirubin Small H Urine Urobilinogen 0.2 Ur Leukocyte Esterase Negative Urine RBC 0-1 Urine WBC 3-5 H Ur Epithelial Cells >50 Urine Bacteria 3+ H Urine Opiates Screen Acetaminophen Urine Barbiturates Ur Phencyclidine Scrn U Amphetamin/Meth Scrn U Benzodiazepines Scrn U Cocaine Metab Screen U Cannabinoids Screen Ethyl Alcohol Departure - Departure Clinical Impression: Suicidal ideation Depression Qualifiers: Depression Type: major depressive disorder Major depression recurrence: recurrent Active/Remission status: currently active Major depression episode severity: severe Psychotic features: without psychotic features Qualified Code(s ): F33.2 - Major depressive disorder, recurrent severe without psychotic features Disposition: Discharge to Home or Self Care Condition: Poor Departure Forms: ED Discharge - Pt. Copy, Patient Portal Self Enrollment Instructions: DI for Depression -- Adult Diet: resume usual diet Activity: increase activity as tolerated Referrals: ERIN WHITE [Primary Care Provider] - 1-2 Weeks Home Medications: Ambulatory Orders ALPRAZolam [Xanax] 0.5 - 1 mg PO Q6HR PRN 05/19/15 Gabapentin 300 mg PO TID 05/19/15 HYDROcodone 10MG/APAP 325MG [Rugby 325] 1 ea PO Q6H PRN 05/19/15 Promethazine Supp [Phenergan Suppository] 12.5 mg ME Q6HR PRN #10 sup 06/16/15 Citalopram Hydrobromide [Celexa] 20 mg PO DAILY #5 07/03/16 Citalopram Hydrobromide [Celexa] 40 mg PO DAILY #30 tab 07/03/16 Sucralfate Suspension [Carafate Suspension] 1 gm PO 0700,1000,1500,2100 #120
[2016-12-09] MEDS ORDERED: IBUPROFEN 200 MG TAB PO ONE (19:44)
[2016-12-09 21:23] VITALS: O2SAT 98
[2016-12-09 21:24] VITALS: BP 114/70
== END 2016-12-09 21:24 | disposition home or self-care (01) ==
LOC: ER 18:29
DX: R45.851 Suicidal ideations (principal); F33.2 Major depressive disorder, recurrent severe without psychotic features; Z87.891 Personal history of nicotine dependence; Z79.899 Other long term (current) drug therapy

== ENCOUNTER 2018-01-05 12:40 | Emergency (ER) | payer SELFPAY ==
--- NOTE | 2018-01-05 13:05 | ED.PDOC ---
History of Present Illness - General Chief Complaint: Headache Stated Complaint: headache,vomiting Time Seen by Provider: 01/05/18 13:01 Source: patient Exam Limitations: no limitations - History of Present Illness Initial Comments: THE PATIENT PRESENTS TO THE ED WITH COMPLAINT OF HEADACHE THAT STARTED 1 DAY AGO. THE PATIENT STATES THAT THIS WAS GRADUAL IN NATURE AND GOT PROGRESSIVELY WORSE. THE PATIENT STATES THAT THIS IS SIMILAR TO HER PREVIOUS MIGRAINE HEADACHES AND NOTED THAT SHE STARTED HAVING SCINTILLATING SCOTOMAS W/ THIS ISSUE AND LATER STARTED HAVING PERSISTENT VOMITING WHICH IS TYPICAL OF HER MIGRAINE CARBAJAL. DUE TO INABILITY TO CONTROL HER SYMPTOMS AT HOME SHE COMES INTO THE ED FOR FURTHER CARE Timing/Duration: other - 1 DAY AGO Quality: moderate, throbbing Head Injury Location: global Recent Head Trauma: no recent headache/trauma Improving Factors: nothing Worsening Factors: nothing Associated Symptoms: nausea/vomiting Allergies/Adverse Reactions: Allergies NO KNOWN ALLERGY Allergy (Verified 12/09/16 18:55) Home Medications: Ambulatory Orders Gabapentin 300 mg PO TID 05/19/15 Review of Systems - Review of Systems Review of Systems: 01/05/18 13:08 A 10 POINT REVIEW OF SYSTEMS WAS DONE AT THE BEDSIDE AND IS NEGATIVE EXCEPT NOTED IN THE PATIENT'S HPI Past Medical History (General) - Patient Medical History Hx Seizures: No Hx Stroke: No Hx Dementia: No Hx Asthma: No Hx of COPD: No Hx Cardiac Disorders: No Hx Congestive Heart Failure: No Hx Pacemaker: No Hx Hypertension: No Hx Thyroid Disease: No Hx Diabetes: No Hx Gastroesophageal Reflux: No Hx Renal Disease: No Hx Cancer: No Hx of HIV: No Hx Hepatitis C: No Hx MRSA: No MRSA Source:: Wound - Vaccination History Hx Tetanus, Diphtheria Vaccination: No Hx Influenza Vaccination: No Hx Pneumococcal Vaccination: No - Social History Hx Tobacco Use: Yes Hx Chewing Tobacco Use: No Hx Alcohol Use: No Hx Substance Use: No Hx Substance Use Treatment: No Hx Depression: Yes Hx Physical Abuse: No Hx Emotional Abuse: No Hx Suspected Abuse: No - Female History Patient : No Family Medical History - Family History Mother Family History: No Known Living Status: Still Living Hx Family Hypertension: Yes Physical Exam - Physical Exam General Appearance: Alert, Well Developed, Well Groomed, Other - IN NAD Eyes, Ears, Nose, Throat Exam: PERRL/EOMI Neck: non-tender, full range of motion, supple, normal inspection, other - NEGATIVE JOLT/KERNIG'S/BRUDZINSKI SIGNS Cardiovascular/Chest: regular rate, rhythm Respiratory: normal breath sounds, no respiratory distress Gastrointestinal/Abdominal: normal bowel sounds, non tender Back Exam: normal inspection Extremity: normal range of motion, non-tender Mental Status: alert, 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 MDM: MIGRAINE/TENSION/PRIMARY CARBAJAL APPEAR TO BE THE MOST LIKELY DDX AT THIS TIME. PT APPEARS EXTREMELY UNLIKELY TO HAVE MENINGITIS DUE TO WELL APPEARANCE, NO PHOTOPHOBIA ON EXAM, NEGATIVE MENINGEAL SIGN'S ON EXAM, AND NORMAL VITAL SIGNS. ACUTE GLAUCOMA HIGHLY UNLIKELY IN THIS PATIENT DUE TO EXAM FINDINGS AND PRESENTATION. POSTERIOR CIRCULATION PATHOLOGY ALSO APPEARS UNLIKELY BASED ON NORMAL NEUROLOGICAL EXAM. SAH ALSO EXTREMELY UNLIKELY WELL (PT AGE <50, NO NECK PAIN/STIFFNESS, DENIES CHANGE IN LOC, NO THUNDERCLAP CARBAJAL, AND ONSET WAS NOT DURING EXERTION) PT DISPO WILL BE DEPENDENT UPON HER ED COURSE. 01/05/18 13:14 01/05/18 14:07 THE PATIENT NOTES NO RELIEF OF HER SYMPTOMS AT THIS TIME. I WILL GIVE HER A DOSE OF PROMETHAZINE WELL ORDER A CT BRAIN AT THIS TIME. I WILL MONITOR HER FOR CLINICAL CHANGES. 01/05/18 17:28 THE PATIENT'S HEADACHE IS PERSISTENT AT THIS TIME. I WILL PROVIDE FURTHER RELIEF. IT SHOULD BE NOTED THAT THE PATIENT HAS NO COMPLAINTS OF BACK PAIN S/P LP THAT WAS DONE. 01/05/18 19:11. THE PATIENT'S PAIN IS PERSISTENT AT THIS TIME. SHE STATES THAT HER REMAINS A 9 OUT OF 10 AT THIS TIME. IN LIGHT OF THIS AND DUE TO THE HOSPITALIST BEING UNCOMFORTABLE CARING FOR THE PATIENT HERE, I HAVE CONTACTED [facility] FOR FURTHER EVALUATION AND CARE. 01/05/18 20:08 THE PATIENT IS ADVISED THAT SHE WILL BE TRANSFERRED TO [facility] FOR FURTHER EVALUATION AND CARE. SHE IS IN AGREEMENT W/ THIS PLAN. - Consult/PCP Time Called: 18:55 Consult/PCP: MR. ARCINIEGA Consult Reason/Comments: DECLINES PATIENT. STATES THE PATIENT NEEDS NEUROLOGY EVALUATION NOW. Procedures - Additional Procedures Additional Procedures: lumbar puncture - THE PATIENT WAS CONSENTED FOR LUMBAR PUNCTURE AT THIS TIME. THE PATIENT WAS CLEANED WITH BETADINE IN A STERILE FASHION. THE PATIENT WAS PLACED IN THE FORWARD FLEXED POSITION. A 22-GAUGE NEEDLE WAS USED STATUS POST THE PATIENT BEING INJECTED WITH 1% LIDOCAINE IN L3/ L4. 4 CC OF CLEAR FLUID WAS RETRIEVED WITH EASE. THERE WERE NO COMPLICATIONS NOTED. THE PATIENT TOLERATED THE PROCEDUE WELL. Departure - Departure Clinical Impression: Headache Qualifiers: Headache type: unspecified ICD-10 Supporting Text: INTRACTABLE PAIN. Disposition: Transfer to Hospital Home Medications: Ambulatory Orders Gabapentin 300 mg PO TID 05/19/15 Transfer to Outside Facility - Transfer Information Accepting Facility: [facility] Reason for Transfer: specialized care not available
[2018-01-05] MEDS ORDERED: diphenhydrAMINE HCL 50 MG/ML VIAL IV ONE (13:06)
[2018-01-05] MEDS ORDERED: METOCLOPRAMIDE HCL INJ 10 MG/2 ML VIAL IV ONE (13:06)
[2018-01-05] MEDS ORDERED: SODIUM CHLORIDE 0.9% 1000ML 1,000 ML IVS ONE (13:07)
[2018-01-05] MEDS ORDERED: PROMETHAZINE HCL INJ 12.5 MG in SODIUM CHLORIDE 0.9% 50ML 50 ML IVPB ONE (14:08)
[2018-01-05] MEDS ORDERED: PROMETHAZINE HCL INJ 25 MG/ML VIAL ONE (14:14)
[2018-01-05] MEDS ORDERED: SODIUM CHLORIDE 0.9% 50ML 50 ML ONE (14:14)
[2018-01-05] MEDS ORDERED: LIDOCAINE 1% 50 ML VIAL INJ ONE (14:58)
--- NOTE | 2018-01-05 15:07 | CT ---
EXAM DESCRIPTION: Head CLINICAL HISTORY: HEADACHE W/ VOMITING. COMPARISON: 08/15/2012 TECHNIQUE: Multiple axial images of the head without contrast. Multiplanar reformatted images. This exam was performed according to our departmental dose-optimization program, which includes automated exposure control, adjustment of the mA and/or kV according to patient size and/or use of iterative reconstruction technique. FINDINGS: There is no CT evidence of intracranial hemorrhage, mass effect, or large territory infarction. The brain parenchyma and ventricles are normal. There are no abnormal extra-axial fluid collections. Vascular structures are unremarkable. There is no acute calvarial defect. The visualized paranasal sinuses and the mastoids are clear. IMPRESSION: No CT evidence of an acute intracranial abnormality. Recommend follow-up MRI if symptoms persist. Electronically signed by: Telly Webber MD 01/05/2018 3:06 PM [employer]
[2018-01-05] MEDS ORDERED: MORPHINE SULFATE INJ 10 MG/ML VIAL IV ONE ×2 (15:41→17:29)
[2018-01-05 16:38] VITALS: O2SAT 96
[2018-01-05] MEDS ORDERED: KETOROLAC TROMETHAMINE INJ 30 MG/ML VIAL IV ONE (19:05)
[2018-01-05] MEDS ORDERED: MAGNESIUM SULFATE INJ 1 GM in SODIUM CHLORIDE 0.9% 100ML 100 ML IVPB ONE (20:04)
[2018-01-05] MEDS ORDERED: methylPREDNISolone SODIUM SUC 1,000 MG in SODIUM CHLORIDE 0.9% 250ML 250 ML IVPB ONE (20:06)
[2018-01-05] MEDS ORDERED: MAGNESIUM SULFATE INJ 1 GM/2 ML VIAL ONE (20:12)
[2018-01-05] MEDS ORDERED: SODIUM CHLORIDE 0.9% 100ML 100 ML IVPB ONE ×2 (20:12→20:59)
[2018-01-05] MEDS ORDERED: METHYLPREDNISOLONE SODIUM SUC ONE (20:58)
[2018-01-05 21:36] VITALS: BP 111/76; TEMP 97.1
== END 2018-01-05 21:20 | disposition short-term general hospital (02) ==
LOC: ER 12:40
DX: R51 Headache (principal); R11.2 Nausea with vomiting, unspecified; F32.9 Major depressive disorder, single episode, unspecified; Z87.891 Personal history of nicotine dependence
CPT/HCPCS: 70450; 81001; 81025; 82945; 84157; 87070; 89051; A4216; J1200; J1885; J2270; J2550; J2765; J2920; J3475; J7030; J7050

== ENCOUNTER 2018-01-12 06:56 | Emergency (ER) | payer SELFPAY ==
[2018-01-12] MEDS ORDERED: PROCHLORPERAZINE INJ 10 MG/2 ML VIAL ONE (07:23)
[2018-01-12] MEDS ORDERED: KETOROLAC TROMETHAMINE INJ 30 MG/ML VIAL ONE (07:23)
[2018-01-12] MEDS ORDERED: DIHYDROERGOTAMINE MESYLATE 1 MG/ML VIAL ONE (07:23)
[2018-01-12] MEDS ORDERED: SODIUM CHLORIDE 0.9% 1000ML 1,000 ML ONE (07:24)
[2018-01-12] MEDS: PROCHLORPERAZINE INJ 10 MG/2 ML VIAL IV ONE (07:33)
[2018-01-12] MEDS: SODIUM CHLORIDE 0.9% 1000ML 1,000 ML IVS ONE (07:35)
[2018-01-12] MEDS: DIHYDROERGOTAMINE MESYLATE 1 MG/ML VIAL IV ONE (07:35)
--- NOTE | 2018-01-12 07:57 | ED.PDOC ---
History of Present Illness - General Chief Complaint: Headache Stated Complaint: Headache Time Seen by Provider: 01/12/18 07:55 Source: patient, RN notes reviewed, Vital Signs reviewed Additional Information: 42 YEAR OLD PREVIOUSLY HEALTHY PRESENTS WITH CONSTANT HEADACHE FOR 1 WEEK SHE DISCRIBES THE HEADACHE THROBBING BOTH FRONTAL ASSOCIATED WITH NAUSEA VOMITING - History of Present Illness Timing/Duration: 1 week Quality: moderate, severe, constant, throbbing Improving Factors: nothing Worsening Factors: nothing Associated Symptoms: nausea/vomiting Allergies/Adverse Reactions: Allergies NO KNOWN ALLERGY Allergy (Verified 12/09/16 18:55) Home Medications: Ambulatory Orders Gabapentin 300 mg PO TID 05/19/15 Uhskopwjfw-Lorbjledzpoia-Oibcq [Fioricet] 1 cap PO Q6HR #20 cap 01/12/18 Tramadol HCl [Ultram] 50 mg PO Q6H PRN #30 tab 01/12/18 Review of Systems - Review of Systems Constitutional: States: no symptoms reported EENTM: States: no symptoms reported Respiratory: States: no symptoms reported Cardiology: States: no symptoms reported Gastrointestinal/Abdominal: States: no symptoms reported Genitourinary: States: no symptoms reported Musculoskeletal: States: no symptoms reported Skin: States: no symptoms reported Neurological: States: no symptoms reported Endocrine: States: no symptoms reported Hematologic/Lymphatic: States: no symptoms reported Past Medical History (General) - Patient Medical History Hx Seizures: No Hx Stroke: No Hx Dementia: No Hx Asthma: No Hx of COPD: No Hx Cardiac Disorders: No Hx Congestive Heart Failure: No Hx Pacemaker: No Hx Hypertension: No Hx Thyroid Disease: No Hx Diabetes: No Hx Gastroesophageal Reflux: No Hx Renal Disease: No Hx Cancer: No Hx of HIV: No Hx Hepatitis C: No Hx MRSA: No MRSA Source:: Wound - Vaccination History Hx Tetanus, Diphtheria Vaccination: Yes Hx Influenza Vaccination: No Hx Pneumococcal Vaccination: No - Social History Hx Tobacco Use: Yes Hx Chewing Tobacco Use: No Hx Alcohol Use: Yes Hx Substance Use: No Hx Substance Use Treatment: No Hx Depression: Yes Hx Physical Abuse: No Hx Emotional Abuse: No Hx Suspected Abuse: No - Female History Patient is a Female of Child Bearing Age (10 -59 yrs old): Yes Patient : No Family Medical History - Family History Mother Family History: No Known Living Status: Still Living Hx Family Hypertension: Yes Physical Exam - Physical Exam General Appearance: Alert Eyes, Ears, Nose, Throat Exam: PERRL/EOMI Neck: non-tender, full range of motion, supple Cardiovascular/Chest: normal peripheral pulses, regular rate, rhythm Respiratory: chest non-tender, lungs clear, normal breath sounds Gastrointestinal/Abdominal: normal bowel sounds, non tender, soft Back Exam: normal inspection, no CVA tenderness, no vertebral tenderness Extremity: normal range of motion, non-tender, 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 Copy, Patient Portal Self Enrollment Instructions: DI for Headache Diet: resume usual diet Referrals: ERIN WHITE [Primary Care Provider] - 1-2 Weeks Prescriptions: Cgpztgeajp-Dymfkufvccail-Hymkd [Fioricet] 1 cap PO Q6HR #20 cap Tramadol HCl [Ultram] 50 mg PO Q6H PRN #30 tab PRN Reason: Pain Home Medications: Ambulatory Orders Gabapentin 300 mg PO TID 05/19/15 Mtfyezzidt-Ntvyxojfathpq-Ivbnu [Fioricet] 1 cap PO Q6HR #20 cap 01/12/18 Tramadol HCl [Ultram] 50 mg PO Q6H PRN #30 tab 01/12/18
[2018-01-12] MEDS: KETOROLAC TROMETHAMINE INJ 30 MG/ML VIAL IV ONE (08:02)
[2018-01-12] MEDS ORDERED: methylPREDNISolone SODIUM SUC 125 MG/2 ML VIAL ONE (08:52)
[2018-01-12] MEDS ORDERED: fentaNYL CITRATE INJ 50 MCG/ML AMP ONE (08:52)
[2018-01-12] MEDS: methylPREDNISolone SODIUM SUC 125 MG/2 ML VIAL IV ONE (08:53)
[2018-01-12] MEDS: fentaNYL CITRATE INJ 50 MCG/ML AMP IV ONE (08:53)
[2018-01-12 10:39] VITALS: BP 127/85; TEMP 97; O2SAT 96
== END 2018-01-12 10:34 | disposition home or self-care (01) ==
LOC: ER 06:56
DX: G43.909 Migraine, unspecified, not intractable, without status migrainosus (principal); F32.9 Major depressive disorder, single episode, unspecified; Z87.891 Personal history of nicotine dependence
CPT/HCPCS: J0780; J1110; J1885; J2930; J3010; J7030

== ENCOUNTER 2018-01-23 10:57 | Observation (INO) | payer SELFPAY ==
[2018-01-23] MEDS ORDERED: SODIUM CHLORIDE 0.9% 1000ML 1,000 ML IVS ONE ×3 (11:09→14:56)
[2018-01-23] MEDS ORDERED: KETOROLAC TROMETHAMINE INJ 30 MG/ML VIAL IV ONE (11:09)
[2018-01-23] MEDS ORDERED: PROCHLORPERAZINE INJ 10 MG/2 ML VIAL IV ONE (11:09)
--- NOTE | 2018-01-23 11:13 | ED.PDOC ---
History of Present Illness - General Chief Complaint: Headache Stated Complaint: migraine, nausea Time Seen by Provider: 01/23/18 10:59 Source: patient Exam Limitations: no limitations - History of Present Illness Initial Comments: patient comes in today with three-day history of severe 10/10 headache bilaterally that is not improving. Patient states that she had maybe 2 migraine headaches when she was younger and then starting an Thanksgiving she's had a total of 4 episodes. The first one that started was severe enough where she was transferred to [place]. Spinal taps and CAT scan were both normal and eventually she was allowed to go home once the headache resolved. Today's headache has been bilateral, constant, pressure-like with associated photophobia, phonophobia, and emesis. Patient states the headache is severe and not improved with yzvc-jjl-hxmnxhq medications. On her last episodes triptan such as Imitrex did not help nor did other anti-nausea medicines at the exception of Compazine. Patient is unsure what they eventually gave her to have a headache away. Today patient states the headache and emesis that cannot stop is her primary reason for presentation. Patient denies any change in diet , activity, stress level, or supplements prior to Thanksgiving when all this began. She is not quite sure what brings it on and is unsure what makes it better. She has no fever, chills, cough or cold symptoms. Her past medical history is only significant for fibromyalgia that she takes gabapentin for. She has had a tubal ligation, cholecystectomy, and appendectomy. She does not smoke, drink, or take illicit substances. Timing/Duration: other - 3 days without improvement Quality: severe, constant, pressure Head Injury Location: frontal Recent Head Trauma: no recent headache/trauma, frequent headaches Improving Factors: nothing Worsening Factors: nothing Associated Symptoms: nausea/vomiting Allergies/Adverse Reactions: Allergies NO KNOWN ALLERGY Allergy (Verified 12/09/16 18:55) Home Medications: Ambulatory Orders Gabapentin 300 mg PO TID 05/19/15 Iwneyuzutv-Sdetfupnduvrh-Bplwr [Fioricet] 1 cap PO Q6HR #20 cap 01/12/18 Tramadol HCl [Ultram] 50 mg PO Q6H PRN #30 tab 01/12/18 Review of Systems - Review of Systems Constitutional: States: no symptoms reported. Denies: chills, fever, weakness EENTM: States: see HPI, other - photophobia and phonophobia. Denies: eye pain, blurred vision, double vision Respiratory: States: no symptoms reported. Denies: cough, short of breath, wheezing Cardiology: States: no symptoms reported. Denies: chest pain, edema, palpitations Gastrointestinal/Abdominal: States: nausea, vomiting. Denies: abdominal pain, constipation, diarrhea Genitourinary: States: no symptoms reported Musculoskeletal: States: no symptoms reported Past Medical History (General) - Patient Medical History Hx Seizures: No Hx Stroke: No Hx Dementia: No Hx Asthma: No Hx of COPD: No Hx Cardiac Disorders: No Hx Congestive Heart Failure: No Hx Pacemaker: No Hx Hypertension: No Hx Thyroid Disease: No Hx Diabetes: No Hx Gastroesophageal Reflux: No Hx Renal Disease: No Hx Cancer: No Hx of HIV: No Hx Hepatitis C: No Hx MRSA: No Hx Other PMH: Yes - fibromyalgia MRSA Source:: Wound - Vaccination History Hx Tetanus, Diphtheria Vaccination: Yes Hx Influenza Vaccination: No Hx Pneumococcal Vaccination: No - Social History Hx Tobacco Use: Yes Hx Chewing Tobacco Use: No Hx Alcohol Use: Yes Hx Substance Use: No Hx Substance Use Treatment: No Hx Depression: Yes Hx Physical Abuse: No Hx Emotional Abuse: No Hx Suspected Abuse: No - Female History Patient : No Family Medical History - Family History Mother Family History: No Known Living Status: Still Living Hx Family Hypertension: Yes Physical Exam - Physical Exam General Appearance: Alert, Ill Appearing Eyes, Ears, Nose, Throat Exam: PERRL/EOMI, normal ENT inspection, TMs normal, pharynx normal Neck: non-tender, full range of motion, supple, normal inspection Cardiovascular/Chest: normal peripheral pulses, regular rate, rhythm, no edema, no gallop, no murmur Respiratory: chest non-tender, lungs clear, normal breath sounds, no respiratory distress Gastrointestinal/Abdominal: normal bowel sounds, non tender, soft, no organomegaly, no pulsatile mass Back Exam: no CVA tenderness Extremity: non-tender Mental Status: alert, oriented x 3, 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 we ill continue IVF and let the medicine have some more time to work as she has had many different agents thus far. 01/23/18 14:20 patient continues with emesis and her headache has returned. CT head ordered, continue IVF, demerol re-dosed and patient to get thorazine for intractable emesis not responding to standard medications (compazine, reglan, zofran per patient not effective) 01/23/18 15:20 headache is gone but she continues to have intractable emesis and nausea. Discussed with claims correspondence clerk PANTOGRAPH SETTER Maria Luz Germain and will admit for continued treatment. - Results/Orders Results/Orders: Laboratory Results WBC 13.3 K/mm3 (4.8-10.8) H 01/23/18 11:24 RBC 4.24 M/mm3 (4.20-5.40) 01/23/18 11:24 Hgb 13.2 gm/dL (12.0-16.0) 01/23/18 11:24 Hct 39.8 % (36.0-47.0) 01/23/18 11:24 MCV 94.0 fl (81.0-99.0) 01/23/18 11:24 MCH 31.2 pg (27.0-31.0) H 01/23/18 11:24 MCHC 33.2 g/dL (33.0-37.0) 01/23/18 11:24 RDW 14.3 % (11.5-14.5) 01/23/18 11:24 Plt Count 348 K/mm3 (130-400) 01/23/18 11:24 MPV 7.8 fl (7.40-10.4) 01/23/18 11:24 Absolute Neuts (auto) 11.80 K/uL (1.8-6.8) H 01/23/18 11:24 Absolute Lymphs (auto) 1.20 K/uL (1.0-3.4) 01/23/18 11:24 Absolute Monos (auto) 0.40 K/uL (0.2-0.8) 01/23/18 11:24 Absolute Eos (auto) 0.00 K/uL (0.0-0.4) 01/23/18 11:24 Absolute Basos (auto) 0.00 K/uL (0.0-0.1) 01/23/18 11:24 Neutrophils % 88.1 % (42.0-78.0) H 01/23/18 11:24 Lymphocytes % 8.8 % (20.0-50.0) L 01/23/18 11:24 Monocytes % 3.0 % (2.0-9.0) 01/23/18 11:24 Eosinophils % 0.0 % (1.0-5.0) L 01/23/18 11:24 Basophils % 0.1 % (0.0-2.0) 01/23/18 11:24 Sodium 142 mmol/L (135-145) 01/23/18 11:24 Potassium 4.2 mmol/L (3.6-5.0) 01/23/18 11:24 Chloride 111 mmol/L (101-111) 01/23/18 11:24 Carbon Dioxide 24 mmol/L (21-31) 01/23/18 11:24 Anion Gap 11.2 (12-18) L 01/23/18 11:24 BUN 12 mg/dL (7-18) 01/23/18 11:24 Creatinine 0.57 mg/dL (0.6-1.3) L 01/23/18 11:24 BUN/Creatinine Ratio 21.1 (10-20) H 01/23/18 11:24 Random Glucose 110 mg/dL (70-105) H 01/23/18 11:24 Serum Osmolality 283.5 mOsm/L (275-295) 01/23/18 11:24 Calcium 8.8 mg/dL (8.4-10.2) 01/23/18 11:24 Total Bilirubin 0.4 mg/dL (0.2-1.0) 01/23/18 11:24 AST 34 IU/L (10-42) 01/23/18 11:24 ALT 37 IU/L (10-60) 01/23/18 11:24 Alkaline Phosphatase 88 IU/L (42-121) 01/23/18 11:24 Serum Total Protein 7.2 gm/dL (6.4-8.2) 01/23/18 11:24 Albumin 3.8 g/dl (3.2-5.5) 01/23/18 11:24 Globulin 3.4 gm/dL (2.3-3.5) 01/23/18 11:24 Albumin/Globulin Ratio 1.1 (1.1-1.9) 01/23/18 11:24 Patient Name: VIDHYA CAMERON Gender: Female Date of : 1975 Referring Physician: CORINNE MARTINEZ Organization: [facility] Accession Number: [id number] Requested Date: January 23, 2018 14:18 Report Status: Final Requested Procedure: 1 Procedure Description: Head Modality: CT Findings Reporting MD: Pieter Barraza MD: Not available Dictation Time: Unemployment Examiner: Not available Report Writer Date: EXAM: Head CLINICAL INDICATION: Headache COMPARISON: 01/05/2018 TECHNIQUE: The CT scan was done using contiguous axial 2.5 mm sections through the brain. This exam was performed according to our departmental dose-optimization program, which includes automated exposure control, adjustment of the mA and/or kV according to patient size and/or use of iterative reconstruction technique. FINDINGS: There is no midline shift, mass effect, or extraaxial fluid collection. There is no evidence of acute intracranial hemorrhage, mass lesion, or cerebral edema. The ventricles and cortical sulci are normal for the patient's age. Bone window images reveal no evidence of a skull fracture. IMPRESSION: No evidence of an acute intracranial process Departure - Departure Clinical Impression: Migraine Qualifiers: Migraine type: without aura Status migrainosus presence: without status migrainosus Intractability: not intractable Qualified Code(s): G43.009 - Migraine without aura, not intractable, without status migrainosus Nausea & vomiting Qualifiers: Vomiting type: unspecified Vomiting Intractability: intractable Qualified Code( s): R11.2 - Nausea with vomiting, unspecified Disposition: Admit Patient Condition: Fair Departure Forms: ED Discharge - Pt. Copy, Patient Portal Self Enrollment Instructions: DI for Headache Referrals: ERIN WHITE [Primary Care Provider] - 1-2 Weeks Home Medications: Ambulatory Orders Gabapentin 300 mg PO TID 05/19/15 Mxddckjstz-Bugmjukhcalgs-Wecjl [Fioricet] 1 cap PO Q6HR #20 cap 01/12/18 Tramadol HCl [Ultram] 50 mg PO Q6H PRN #30 tab 01/12/18 Decision To Admit - Decistion To Admit Decision to Admit Reason: Admit from ER Decision to Admit Date: 01/23/18 Decision to Admit Time: 15:21
[2018-01-23] MEDS ORDERED: DIHYDROERGOTAMINE MESYLATE 1 MG/ML VIAL IV ONE ×2 (11:19→12:28)
[2018-01-23] MEDS ORDERED: methylPREDNISolone SODIUM SUC 125 MG/2 ML VIAL IV ONE (11:19)
[2018-01-23] MEDS ORDERED: ONDANSETRON ODT 8 MG TAB SL ONE (12:00)
[2018-01-23] MEDS ORDERED: METOCLOPRAMIDE HCL INJ 10 MG/2 ML VIAL IV ONE (12:27)
[2018-01-23] MEDS ORDERED: MEPERIDINE HCL 50 MG/ML VIAL IV ONE ×2 (13:03→14:18)
--- NOTE | 2018-01-23 14:51 | CT ---
EXAM: Head CLINICAL INDICATION: Headache COMPARISON: 01/05/2018 TECHNIQUE: The CT scan was done using contiguous axial 2.5 mm sections through the brain. This exam was performed according to our departmental dose-optimization program, which includes automated exposure control, adjustment of the mA and/or kV according to patient size and/or use of iterative reconstruction technique. FINDINGS: There is no midline shift, mass effect, or extraaxial fluid collection. There is no evidence of acute intracranial hemorrhage, mass lesion, or cerebral edema. The ventricles and cortical sulci are normal for the patient's age. Bone window images reveal no evidence of a skull fracture. IMPRESSION: No evidence of an acute intracranial process. Electronically signed by: Pieter Barraza MD 01/23/2018 2:49 PM CHIEF SECURITY OFFICER
[2018-01-23] MEDS ORDERED: PROCHLORPERAZINE INJ 10 MG/2 ML VIAL IV PRN (16:15)
[2018-01-23] MEDS ORDERED: PANTOPRAZOLE SODIUM IV 40 MG VIAL IV SCH (16:30)
[2018-01-23] MEDS ORDERED: IV SET AND CAP CHANGE INJ INJ SCH (16:30)
[2018-01-23] MEDS ORDERED: PROMETHAZINE HCL INJ 25 MG/ML VIAL ONE ×2 (16:36→22:20)
[2018-01-23] MEDS ORDERED: SODIUM CHLORIDE 0.9% 50ML 50 ML ONE ×2 (16:36→22:20)
[2018-01-23] MEDS: PROMETHAZINE HCL INJ 25 MG in SODIUM CHLORIDE 0.9% 50ML 50 ML IVPB PRN ×2 (16:50→22:25)
[2018-01-23] MEDS: DEX 5% W/NACL 0.45% 1000ML 1,000 ML IVS PRN (16:53)
[2018-01-23] MEDS: SODIUM CHLORIDE 0.9% (FLUSH) 10 ML SYG IV PRN ×2 (19:46→20:42)
[2018-01-23] MEDS: KETOROLAC TROMETHAMINE INJ 30 MG/ML VIAL IV PRN (19:47)
[2018-01-23] MEDS: GABAPENTIN 300 MG CAP PO SCH (20:51)
[2018-01-23] MEDS: SUCRALFATE 1 GM/10 ML 1 GM UD PO SCH (20:52)
[2018-01-24] MEDS ORDERED: SODIUM CHLORIDE 0.9% 50ML 50 ML ONE (02:09)
[2018-01-24] MEDS ORDERED: PROMETHAZINE HCL INJ 25 MG/ML VIAL ONE (02:09)
[2018-01-24] MEDS: SODIUM CHLORIDE 0.9% (FLUSH) 10 ML SYG IV PRN ×2 (02:15→03:53)
[2018-01-24] MEDS: KETOROLAC TROMETHAMINE INJ 30 MG/ML VIAL IV PRN (02:15)
[2018-01-24] MEDS: DEX 5% W/NACL 0.45% 1000ML 1,000 ML IVS PRN ×2 (02:26→03:31)
[2018-01-24] MEDS: PROMETHAZINE HCL INJ 25 MG in SODIUM CHLORIDE 0.9% 50ML 50 ML IVPB PRN (03:00)
[2018-01-24] MEDS: SUCRALFATE 1 GM/10 ML 1 GM UD PO SCH ×2 (06:16→11:40)
[2018-01-24] MEDS ORDERED: PANTOPRAZOLE SODIUM IV 40 MG VIAL IV SCH (09:00)
[2018-01-24] MEDS: DIHYDROERGOTAMINE MESYLATE 1 MG/ML VIAL IV PRN ×2 (09:08→10:18)
[2018-01-24] MEDS: GABAPENTIN 300 MG CAP PO SCH (09:09)
[2018-01-24] MEDS ORDERED: LORazepam 0.5 MG TAB PO PRN (09:49)
[2018-01-24] MEDS ORDERED: TOPIRAMATE 25 MG TAB PO SCH (10:00)
[2018-01-24] MEDS ORDERED: CITALOPRAM HBR 20 MG TAB PO SCH (10:00)
[2018-01-24 10:25] VITALS: BP 107/69; TEMP 98.3; O2SAT 95
--- NOTE | 2018-01-24 15:55 | SSS ---
SUPERVISING PHYSICIAN: Jorge Bermeo M.D. CHIEF COMPLAINT: Headache with nausea and vomiting. HISTORY OF PRESENT ILLNESS: This is a 42 year-old female patient who had a 3 day history of migraine headaches that had not improved. She has had 4 episodes since . She actually was transferred to [place] during one of these episodes. She had a spinal tap and a CAT scan that were both normal. She was allowed to go home once the headache resolved. In the E. R., she said that it was on both sides, constant, pressure-like with associated photophobia, phonophobia and emesis. Previously triptan such as Imitrex did not help nor did any of the other antinausea medicines with the exception of Compazine. She was not sure what they gave her to make the headaches go away. Actually her primary reason for coming to the Emergency Room was due to her continued emesis. She sees Dr. Domínguez in [place]. In the Emergency Room, she received some DHE 45 as well as some saline boluses. She received some Carafate and Compazine. Demerol was also given and that finally made the headache go away, but she continued with her emesis and was also given Ketoralac and Thorazine. Her headache improved but her emesis did not. She was given several liters of fluids in the E. R. and I was called to admit the patient to the hospital for nausea, vomiting and dehydration. In the E. R., her laboratory showed her electrolytes were basically within normal limits. Glucose was slightly high at 110. WBCs were slightly high at 13,300 but most likely was a stress response. Her H&H was 13.2 and hematocrit 39.8. Head CT was done and showed no evidence of acute intracranial process. She was admitted to the hospital for observation. PAST MEDICAL HISTORY: 1. Fibromyalgia. 2. Migraines. 3. Rheumatoid arthritis. PAST SURGICAL HISTORY: 1. Cholecystectomy. 2. Appendectomy. 3. Tonsillectomy. 4. Bilateral tubal ligation. CURRENT MEDICATIONS: 1. Gabapentin. ALLERGIES: NO KNOWN DRUG ALLERGIES. FAMILY HISTORY: Positive for hypertension, diabetes mellitus. SOCIAL HISTORY: She denies smoking, ETOH or illicit drug use. REVIEW OF SYSTEMS: Negative except as per History of Present Illness. PHYSICAL EXAMINATION: VITAL SIGNS: She is afebrile, heart rate 49, blood pressure 121/79, respiratory rate 18, O2 sat is 96%. T max during her stay was 99.1. Pulse rate ran between 49 and 85. Blood pressure ran between 94/58 to 129/79. Respiratory rate was 16 to 20. O2 sats were all greater than 95% on room air. GENERAL: This is a 42 year-old female patient lying in her hospital bed. She is somewhat tearful but she looks to be in no acute distress. HEENT: Normocephalic and atraumatic. Pupils are equal and reactive. Oropharynx is clear. NECK: Supple without mass. RESPIRATORY: Essentially clear to auscultation bilaterally. CARDIOVASCULAR: Regular rate and rhythm. GASTROINTESTINAL: Abdomen is soft, nondistended, non-tender. Bowel sounds are positive. EXTREMITIES: Within normal limits. NEUROLOGIC: She is awake, alert and oriented times three, although she does appear somewhat anxious. LABORATORY: Labs and films are as per the history of present illness. ASSESSMENT: 1. Protracted nausea and vomiting most likely secondary to migraine headaches. 2. Dehydration requiring IV hydration supplementation. 3. Migraine headache that resolved in the E. R. but had recurring symptoms while in the hospital. 4. History of fibromyalgia. 5. Chronic anxiety disorder. HOSPITAL COURSE: The patient received fluids while in the hospital. I also gave her some DHE 45 as well as some Phenergan. She received Carafate. She received 1 dose of Ketoralac after admission but then she refused after that saying it did not work. She also refused Imitrex saying that it did not work. I also gave her some Ativan and she said that the Ativan was the only thing that actually worked. The DHE 45 was somewhat helpful. We discussed at length that her anxiety may be contributing to her headaches and that it was best to do prophylaxis to prevent the headaches. On her previous admission I had given her some Celexa and she did say that helps with anxiety, so I started Celexa on her. We also discussed prophylaxis with Topamax and I did start a dose of that. We discussed migraine headaches at length and discussed that she needed to followup with her primary care physician both for her anxiety medications as well as her Topamax because prophylaxis to prevent migraines usually worked the best, especially because triptans do not work on her. Her nausea has been controlled for the last 12 hours. She has taken in some clear liquids without any nausea or vomiting. She does have a mild residual headache and I explained that it would most likely benefit from [id number]-[id number] NSAIDs until we can get her on her prophylactic dose of Topamax. She can be discharged home in stable condition. DISCHARGE PLAN: The patient will be discharged home in stable condition. She is to followup with Dr. Domínguez as soon as possible. She is to return to the hospital for any further problems with nausea and vomiting. She is to followup with Dr. Domínguez for her migraine. I have given her a prescription for Topamax , Phenergan, Ativan, Celexa and Carafate. She is to resume her previous activity as well as her previous diet. DISCHARGE MEDICATIONS: 1. Gabapentin. 2. Topamax. 3. Phenergan. 4. Ativan. 5. Celexa. 6. Carafate. #[id number] [facility]
== END 2018-01-24 13:30 | disposition home or self-care (01) ==
LOC: ER 10:57 → MS 15:44
PROVIDERS: ADMIT Nurse Practitioner Acute Care; ATTEND Nurse Practitioner Acute Care
DX: E86.0 Dehydration (principal); G43.009 Migraine without aura, not intractable, without status migrainosus; M79.7 Fibromyalgia; F41.9 Anxiety disorder, unspecified; M06.9 Rheumatoid arthritis, unspecified; Z79.899 Other long term (current) drug therapy; Z87.891 Personal history of nicotine dependence
CPT/HCPCS: 96361 ×2; 96366 ×2; 96365; 96375; 96376 ×2; 96372; J3230; J1110 ×4; J1885 ×3; J2060 ×2; J2175 ×2; J2930; J2765; J0780 ×2; J2550 ×3; J7030 ×3; A4216 ×3; J7799 ×3; 80053; 36415; 85025; 70450; 99285; G0378

== ENCOUNTER 2019-01-07 21:51 | Emergency (ER) | payer SELFPAY ==
[2019-01-07 22:17] VITALS: TEMP 97.8
[2019-01-07] MEDS ORDERED: KETOROLAC TROMETHAMINE INJ 30 MG/ML VIAL IV ONE (22:33)
[2019-01-07] MEDS ORDERED: SODIUM CHLORIDE 0.9% 1000ML 1,000 ML IVS ONE (22:33)
[2019-01-07] MEDS ORDERED: METOCLOPRAMIDE HCL INJ 10 MG/2 ML VIAL IV ONE (22:33)
[2019-01-07] MEDS ORDERED: diphenhydrAMINE HCL 50 MG/ML VIAL IV ONE (22:34)
--- NOTE | 2019-01-07 22:36 | ED.PDOC ---
History of Present Illness - General Chief Complaint: Headache Stated Complaint: headache Time Seen by Provider: 01/07/19 21:53 Source: patient, RN notes reviewed, Vital Signs reviewed, old records Exam Limitations: no limitations - History of Present Illness Initial Comments: pt is a 43 yo female with PMH of migraines, presents with 2 day h/o her typical migraine. Pain is throbbig and in bilateral temples. Has had nausea and vomited x 1 today. Denies fever, chills, stiff neck or recent head injury. States this is similar to her previous migraines. She has taken Imitrex and Excedrin migraine at home with minimal relief. Allergies/Adverse Reactions: Allergies NO KNOWN ALLERGY Allergy (Verified 01/23/18 16:15) Home Medications: Ambulatory Orders Topiramate [Topamax] 25 mg PO DAILY #60 tab 01/24/18 Review of Systems - Review of Systems Constitutional: Denies: chills, fever, weakness EENTM: Denies: blurred vision, ear pain, throat pain Cardiology: States: no symptoms reported Gastrointestinal/Abdominal: States: nausea, vomiting. Denies: abdominal pain Musculoskeletal: Denies: back pain, muscle pain Neurological: States: headache. Denies: numbness, paresthesia, seizure, weakness Hematologic/Lymphatic: States: no symptoms reported All other Systems: Reviewed and Negative Past Medical History (General) - Patient Medical History Hx Seizures: No Hx Stroke: No Hx Dementia: No Hx Asthma: No Hx of COPD: No Hx Cardiac Disorders: No Hx Congestive Heart Failure: No Hx Pacemaker: No Hx Hypertension: No Hx Thyroid Disease: No Hx Diabetes: No Hx Gastroesophageal Reflux: No Hx Renal Disease: No Hx Cancer: No Hx of HIV: No Hx Hepatitis C: No Hx MRSA: No MRSA Source:: Wound - Vaccination History Hx Tetanus, Diphtheria Vaccination: Yes Hx Influenza Vaccination: No Hx Pneumococcal Vaccination: No - Social History Hx Tobacco Use: Yes Hx Chewing Tobacco Use: No Hx Alcohol Use: Yes Hx Substance Use: No Hx Substance Use Treatment: No Hx Depression: Yes Hx Physical Abuse: No Hx Emotional Abuse: No Hx Suspected Abuse: No - Female History Patient : No Family Medical History - Family History Mother Family History: No Known Living Status: Still Living Hx Family Hypertension: Yes Physical Exam - Physical Exam General Appearance: Alert, Comfortable, No apparent distress, Other - Nontoxic appearing Eye Exam: bilateral normal - PERRLA Ears, Nose, Throat: normal ENT inspection Neck: non-tender, full range of motion, supple, other - No meningismus Respiratory: chest non-tender, lungs clear, normal breath sounds, no respiratory distress, no accessory muscle use Cardiovascular/Chest: normal peripheral pulses, regular rate, rhythm, no edema Gastrointestinal/Abdominal: non tender, soft, other - NTTP in all quadrants Extremity: normal range of motion, non-tender, no calf tenderness 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 Pt requesting narcotic pain medication. Will treat with 1 dose Morphine for pain control. Nausea has resolved. Afebrile. Nontoxic apearing. She has no deficits on repeat neuro exam. Feels comfortable going home and f/u with pcp in 1-2 days for recheck. SRP given. Departure - Departure Clinical Impression: Headache Qualifiers: Headache type: unspecified Headache chronicity pattern: acute headache Intractability: not intractable Qualified Code(s): R51 - Headache Time of Disposition: 23:14 Disposition: Discharge to Home or Self Care Condition: Good Departure Forms: ED Discharge - Pt. Copy, Patient Portal Self Enrollment Instructions: DI for Headache Diet: resume usual diet Activity: increase activity as tolerated Referrals: ERIN WHITE [Primary Care Provider] - 1-2 Days Home Medications: Ambulatory Orders Topiramate [Topamax] 25 mg PO DAILY #60 tab 01/24/18
[2019-01-07] MEDS ORDERED: MORPHINE SULFATE INJ 10 MG/ML VIAL IV ONE (23:11)
[2019-01-07 23:12] VITALS: BP 119/69; O2SAT 97
== END 2019-01-07 23:25 | disposition home or self-care (01) ==
LOC: ER 21:51
DX: R51 Headache (principal); Z87.891 Personal history of nicotine dependence
CPT/HCPCS: J1200; J1885; J2270; J2765; J7030